=== PATIENT | female | born 1955 ===

== ENCOUNTER 2017-01-21 01:33 | Emergency (ER) | payer MEDICAID ==
[2017-01-21 02:11] VITALS: BP 154/54; PULSE 82; RESP 18; TEMP 98.3; O2SAT 100
[2017-01-21] MEDS ORDERED: Sodium Chloride 0.9% 1,000 ML IV STA (02:22)
--- NOTE | 2017-01-21 02:42 | ED PDOC ---
HPI: General Adult Time Seen by Provider: 01/21/17 02:02 Chief Complaint (Nursing): Flu-like Symptoms History Per: Patient History/Exam Limitations: no limitations Additional Complaint(s): 61 y/o F with a PMHx of HTN and Vertigo c/o dizziness that began last night. Pt describes dizziness as lightheadedness and feeling of room spinning around her, aggravated with positional changes and associated with severe nausea. Pt was diagnosed w/ BPPV on March this year and took "Betahistine" just before coming to ER. Pt also reports headache, nasal congestion, sore throat, b/l otalgia, productive cough and body aches for 3 days. Pt denied fever, CP, SOB, abdominal pain, diarrhea, rash, recent travel or hearing disturbances. NKDA Medications: Losartan and Atorvastatin PMHx: HTN, HLD and Vertigo. PSHx: denies recent surgery. SHx: denies tobacco, alcohol or rec drugs. Past Medical History Vital Signs: Last Vital Signs Temp 98.3 F 01/21/17 02:07 Pulse 82 01/21/17 02:07 Resp 18 01/21/17 02:07 BP 154/54 H 01/21/17 02:07 Pulse Ox 100 01/21/17 04:44 - Medical History PMH: HTN, Hyperlipidemia - Family History Family History: States: No Known Family Hx - Living Arrangements Living Arrangements: With Family - Social History Current smoker - smoking cessation education provided: No Ex-Smoker (has not smoked in the last 12 months): No Alcohol: None Drugs: Denies - Home Medications Home Medications: Ambulatory Orders Medication Instructions Recorded Meclizine [Antivert] 25 mg PO Q6 PRN #20 tab 01/21/17 - Allergies Allergies/Adverse Reactions: Allergies Allergy/AdvReac Type Severity Reaction Status Date / Time No Known Allergies Allergy Verified 01/21/17 02:11 Review of Systems Constitutional: Negative for: Fever, Chills ENT: Positive for: Ear Pain, Nose Congestion, Throat Pain (Sore throat.). Negative for: Ear Discharge Cardiovascular: Negative for: Chest Pain, Palpitations Respiratory: Positive for: Cough, Shortness of Breath. Negative for: Wheezing Gastrointestinal: Positive for: Nausea. Negative for: Vomiting, Abdominal Pain , Diarrhea Genitourinary Female: Negative for: Dysuria Neurological: Positive for: Headache, Dizziness Physical Exam - Reviewed Vital Signs Reviewed: Yes - Physical Exam Appears: Positive for: Well, Uncomfortable Head Exam: Positive for: ATRAUMATIC, NORMAL INSPECTION, NORMOCEPHALIC Eye Exam: Positive for: Normal appearance, EOMI, PERRL ENT: Positive for: TM Is/Are (normal.), Pharyngeal Erythema (No tonsils.) Neck: Positive for: Limited ROM (due to dizziness.) Cardiovascular/Chest: Positive for: Regular Rate, Rhythm Respiratory: Positive for: Normal Breath Sounds Gastrointestinal/Abdominal: Positive for: Normal Exam, Bowel Sounds, Soft. Negative for: Tenderness Neurologic/Psych: Positive for: Alert, Oriented - Laboratory Results Result Diagrams: 01/21/17 02:45 01/21/17 02:45 - ECG O2 Sat by Pulse Oximetry: 100 Medical Decision Making Medical Decision Makin61 y/o F with a PMHx of HTN and vertigo presenting with severe dizziness. Plan: --CBC --CMP --Urinalysis --Glucose by glucometer --Rapid influenza A/B --IV NSS 0.9% --Meclizine --Zofran 03:31 Pt reports some improvement. CBC and urinalysis unremarkable, influenza A/ B negative, mildly elevated LFT's. Pt receiving IV fluids. 04:00 Pt feeling better. Pt is stable, afebrile and tolerating PO, will be discharged. Meclizine prescribed. Pt instructed to be evaluated by PCP promptly , increase PO fluids and conservative management. Disposition - Clinical Impression Clinical Impression: Vertigo - Patient ED Disposition Is Patient to be Admitted: No - Disposition Referrals: [facility] [Outside] Damian Oconnor MD [Emergency Midlevel Provider] - Disposition: Routine/Home Disposition Time: 04:00 Condition: STABLE Prescriptions: Meclizine [Antivert] 25 mg PO Q6 PRN #20 tab PRN Reason: Dizziness Instructions: Vertigo (ED) Forms: [employer] (Romanian) Print Language: MALAYSIAN
[2017-01-21 03:09] LABS: BASO % 0.6 % (0.0-2.0); EOS # 0.2 K/uL (0.0-0.7); EOS % 3.6 % (0.0-4.0); HEMATOCRIT 38.4 % (34.0-47.0); LYMPH % 37.2 % (20.0-40.0); MEAN CELL VOLUME 84.6 fl (81.0-99.0); MEAN CORPUSCULAR HEMOGLOBIN 28.8 pg (27.0-31.0); MONO # 0.5 K/uL (0.0-0.8); MONO % 9.3 % (0.0-10.0); NEUT # 2.7 K/uL (1.8-7.0); NEUT % 49.3 % (50.0-75.0); NRBC % 0.2 % (0.0-0.0); RED CELL DISTRIBUTION WIDTH 12.5 % (11.5-14.5); WHITE BLOOD COUNT 5.5 K/uL (4.8-10.8)
[2017-01-21 03:11] LABS: URINE BILIRUBIN NEGATIVE (NEGATIVE); URINE BLOOD NEGATIVE (NEGATIVE); URINE COLOR COLORLESS (YELLOW); URINE GLUCOSE (UA) NEG (Normal); URINE KETONE NEGATIVE (NEGATIVE); URINE LEUKOCYTE ESTERASE NEG Leu/uL (Negative); URINE PROTEIN NEGATIVE (NEGATIVE); URINE UROBILINOGEN 0.2-1.0 mg/dL (0.2-1.0); WBC URINE < 1 /hpf (0-5)
[2017-01-21 03:14] LABS: ALB/GLOB RATIO 1.2 (1.0-2.1); ALKALINE PHOSPHATASE 123 U/L (38-126); ALT/SGPT 65 U/L (9-52); AST/SGOT 40 U/L (14-36); BILIRUBIN,TOTAL 0.5 mg/dl (0.2-1.3); BLOOD UREA NITROGEN 12 mg/dl (7-17); CALCIUM 10.3 mg/dL (8.4-10.2); CARBON DIOXIDE 22 mmol/L (22-30); CHLORIDE 110 mmol/L (98-107); GFR AFRICAN-AMERICAN > 60; GLUCOSE,RANDOM 110 mg/dL (65-105); SODIUM 144 mmol/l (132-148); TOTAL PROTEIN 7.6 G/DL (6.3-8.2)
== END 2017-01-21 04:13 | disposition home or self-care (01) ==
LOC: H.ER 01:33
DX: R42 Dizziness and giddiness (principal); I10 Essential (primary) hypertension; E78.5 Hyperlipidemia, unspecified
CPT/HCPCS: 80053; 81003; 85025; 87804; 96360; 99282; J2405; J7040